=== PATIENT | female | born 1980 | race Caucasian/White ===

== ENCOUNTER 2023-04-17 04:47 | Inpatient (IN) | payer BC, OTHER, SELFPAY ==
[2023-04-17] VITALS (193 sets, daily range): BP systolic 113–180; BP diastolic 61–98; PULSE 73–241; RESP 18; TEMP 36.2–37.3; O2SAT 94–100; BMI 37.2
[2023-04-17 05:57] LABS: Basophils Percent Auto 0.3 % (0.2-1.2); Eosinophils Absolute Auto 0.3 K/mm3 (0-0.3); Eosinophils Percent Auto 2.5 % (0-4.4); Hematocrit 30.1 % (37.0-47.0); Hemoglobin 9.9 g/dL (12.0-15.0); Immature Granulocyte Absolute 0.05 K/mm3 (0.00-0.031); Immature Granulocyte Percent A 0.4 % (0-0.5); Lymphocytes Absolute Auto 2.52 K/mm3 (0.9-3.2); Lymphocytes Percent Auto 20.3 % (18.3-44.2); Mean Corpuscular HGB Conc 32.9 g/dl (32-36); Mean Corpuscular Hemoglobin 27.9 pg (26-34); Mean Corpuscular Volume 84.8 fl (80-100); Mean Platelet Volume 9.8 fl (7.4-10.4); Monocytes Absolute Auto 0.8 K/mm3 (0.1-0.6); Monocytes Percent Auto 6.4 % (2.6-8.5); Neutrophils Absolute Auto 8.7 K/mm3 (1.3-6.7); Neutrophils Percent Auto 70.1 % (45.5-73.1); Platelet Count Result 300 k/mm3 (150-375); Red Blood Count 3.55 M/mm3 (4.2-5.4); Red Cell Distribution Width 15.2 % (11.5-14.5); White Blood Count 12.4 K/mm3 (4.5-10.0)
[2023-04-17] MEDS: LACTATED RINGERS 1,000 ML 125 ML IV CONT ×2 (06:13→19:30)
[2023-04-17] MEDS: OXYTOCIN 30 UNITS/NS 500 ML 30 UNITS/500 ML BAG IV CONT (06:14)
[2023-04-17 09:46] LABS: Rapid Plasma Reagin Non-Reactive (NonReactive)
--- NOTE | 2023-04-17 09:59 | WPDANESEPP ---
Anes - Eval Pre Procedure Procedure: Labor Epidural Date/Time: 04/17/23 09:59 Surgeon: Alex Preop Diagnosis: Labor Pain Pre Op Diagnosis: IOL Patient Data Age: 42 Gender: F Height: 1.73 m Weight: 111 kg Last Vital Signs Temp 36.3 C L 04/17/23 05:30 Pulse 89 04/17/23 09:51 BP 150/72 H 04/17/23 09:51 Pulse Ox 96 04/17/23 09:56 O2 Del Method Room Air 04/17/23 05:41 Allergies Allergy/AdvReac Type Severity Reaction Status Date / Time No Known Drug Allergies Allergy Unknown Verified 04/11/23 15:23 Home Medications Medication Instructions Recorded Confirmed Type aspirin 81 mg tablet,delayed 81 mg PO DAILY 01/18/23 04/17/23 History release omeprazole 20 mg capsule,delayed 20 mg PO DAILY 01/18/23 04/17/23 History release prenat.vits,esvin,ayo-fsfl-ranoo 1 tablet PO DAILY 01/18/23 04/17/23 History Laboratory Tests 04/17/23 05:42 WBC 12.4 H K/mm3 (4.5-10.0) RBC 3.55 L M/mm3 (4.2-5.4) Hgb 9.9 L g/dL (12.0-15.0) Hct 30.1 L % (37.0-47.0) MCV 84.8 fl (80-100) MCH 27.9 pg (26-34) MCHC 32.9 g/dl (32-36) RDW 15.2 H % (11.5-14.5) Plt Count 300 k/mm3 (150-375) MPV 9.8 fl (7.4-10.4) Immature Gran % (Auto) 0.4 % (0-0.5) Neut % (Auto) 70.1 % (45.5-73.1) Lymph % (Auto) 20.3 % (18.3-44.2) [place] % (Auto) 6.4 % (2.6-8.5) Eos % (Auto) 2.5 % (0-4.4) Baso % (Auto) 0.3 % (0.2-1.2) Lymph # (Auto) 2.52 K/mm3 (0.9-3.2) [place] # (Auto) 0.8 H K/mm3 (0.1-0.6) Eos # (Auto) 0.3 K/mm3 (0-0.3) Baso # (Auto) 0.0 K/mm3 (0.0-0.1) Abs Immat Gran (auto) 0.05 H K/mm3 (0.00-0.031) Absolute Neuts (auto) 8.7 H K/mm3 (1.3-6.7) Absolute Nucleated RBC 0.0 K/mm3 (0.0-0.012) Nucleated RBC % 0.0 % (0.0-0.2) RPR Non-reactive (NonReactive) Blood Type A Positive Antibody Screen Negative : gestational age (BOBBY 04/24/23, ) Patient hx anesthesia problems: none Family hx anesthesia problems: none Results Review: All pre-operative results and documents have been reviewed as part of the pre-operative evaluation. 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 Suppression of menstruation Vaginal delivery 08/27/01 Daimyan incubator for respiratory distress 04/27/03 Hannah no complications 01/11/14 Delia hypertension 09/14/17 [place] gestational hypertension, oligohydramnios Vaginal discharge Surgical History Surgical History History of colposcopy with cervical biopsy 06/04/09 benign Family History Family History Grandparent Diabetes mellitus maternal grandmother paternal grandmothr Heart disease maternal grandfather Father Diabetes mellitus Sibling Diabetes mellitus brothers Mother Hypertension Intracranial aneurysm Social History Social History Smoking packs per day: 0.5 Smoking cigarettes per day: 10.0 Smoking status: Current every day smoker Tobacco type: cigarettes Smokeless tobacco user: chewing tobacco Second hand tobacco smoke exposure: No Alcohol intake: never Substance use: former Substance use type: does not use Lack of Transportation: No Lack of Food: Never True Current Housing: I Have Housing Concerned About Future Housing: No Difficulty Paying Gas/Electric Bills: No Difficulty Paying for Meds: No Currently Unemployed: No Education: Trade/Vocational Certificate Difficulty w/ Childcare or Family Care: No Living arrangements: other Additional living arrangements comments: Occupation/Education: unemployed
[2023-04-17] MEDS: SODIUM CHLORIDE 0.9% IV 300 ML 600 ML I-UTERINE (15:58)
[2023-04-17] MEDS: ONDANSETRON INJ 4 MG/2 ML VIAL IV PUSH (17:51)
[2023-04-17] MEDS: OXYTOCIN 30 UNITS/NS 500 ML 30 UNITS/500 ML BAG 999 UNITS IV CONT (21:30)
--- NOTE | 2023-04-17 21:37 | P.PCNOB_ITS ---
OB - Delivery Note Procedure Induction method: Per Pitocin Protocol Delivery augmentation: Rupture of Membranes Delivery monitor: External FHT and Internal Uterine Route of delivery: Episiotomy description: None Laceration Description: None Specimen: No Quantitative Blood Loss (ml): 300 Anesthesia type: Epidural Disposition: Floor Complications: None Narrative: patient was prepped and draped in usual manner for this procedure. Maternal expulsive efforts readily delivered vertex over intact perineum, in the rest of baby followed without difficulty. Cord clamped and cut and placenta delivered spontaneously as well. Cervix vagina vulva were inspected with no lacerations or tears. Uterus well contracted minimal bleeding. At this point the procedure was considered terminated with immediate postoperative condition of mother and baby both excellent. [place] Weeks of gestation at delivery: 39 Infant gender: Female presentation: vertex position: Left Occiput Anterior Placenta delivery description: Spontaneous Cord Vessel Description: 3 Vessels score one minute: 8 score five minutes: 9 [facility] Delivery Billing Delivery Delivery: Delivery Charge
--- NOTE | 2023-04-17 21:37 | WPDHPUPDATE1 ---
History and Physical Update Update Date/Time: 04/17/23 21:37 History and Physical has been reviewed, including an updated exam of the patient. There are NO changes in the patient's condition. Risks, benefits, and alternatives have been discussed and questions answered. Patient agrees to proceed with procedure.
--- NOTE | 2023-04-17 21:37 | WPDOBADMIT ---
Obstetrics - Admit Note Admission Note: record reviewed. No pertinent additions to the history and/or any subsequent changes in the physical findings that are not consistent with the expected course of the were found. Additions to the history and/or subsequent changes in the physical findings follow. None.
[2023-04-17] MEDS: OXYTOCIN 30 UNITS/NS 500 ML 30 UNITS/500 ML BAG 125 UNITS IV CONT (22:20)
--- NOTE | 2023-04-17 23:50 | OBPPTRN ---
Patient transferred to post room #279 via wheelchair. Support person present. Oriented to unit, room, information board, rooming in, admission packet and security measures. Patient verbalizes understanding. with patient.
[2023-04-18 03:20] VITALS: BP 113/64; PULSE 91; RESP 16; TEMP 36; O2SAT 98
[2023-04-18] MEDS: IBUPROFEN 600 MG TABLET PO ×3 (03:21→16:31)
[2023-04-18 05:04] LABS: Hemoglobin 9.5 g/dL (12.0-15.0)
--- NOTE | 2023-04-18 07:27 | PM.OBDSVD ---
DS: Admitting Diagnosis Discharge Date 04/19/2023 Admitting Diagnosis DS: Discharge Diagnosis Discharge Diagnosis (1) , delivered: Code(s): O80 - Encounter for full-term uncomplicated delivery Status: Acute OB - DS: Summary OB Procedures : None OB Procedures Intrapartum: Spontaneous Vag Delivery OB Procedures: : None Time Spent with Patient Time attestation: Total time spent providing and/or coordinating discharge services: DS: Data Data Completed and Pending Labs on day of discharge: Labs from last 24 hours 04/18/23 04/17/23 03:26 05:42 Hgb 9.5 L Hct 29.0 L RPR Non-reactive Discharge Plan Discharge Discharging Clinician: Reji Johnson Patient Disposition: Home, Self-Care Activity: as tolerated Diet: as tolerated Patient Instructions: Antibiotic Form Stand Alone Forms: General Discharge Information Follow-up/Referrals: Reji Johnson MD [Physician] - 3 Weeks Discharge Medications: New ibuprofen 600 mg Tablet 600 mg PO Q6H PRN (Reason: Cramping) Qty: 30 0RF Continued omeprazole 20 mg capsule,delayed release(DR/EC) 20 mg PO DAILY prenat.vits,esvin,mgf-zygw-qiiuz Tablet 1 tablet PO DAILY aspirin 81 mg tablet,delayed release (DR/EC) 81 mg PO DAILY Date of admission: 04/17/23 04:47 Primary Care Provider: UNKNOWN,DOCTOR Admitting Provider: Reji Johnson Attending physician on admission: Reji Johnson Condition: Stable
[2023-04-18 07:50] VITALS: BP 126/83; PULSE 87; RESP 16; TEMP 36.7; O2SAT 100
[2023-04-18] MEDS: MULTIVIT/MIN/PREN/FOL AC/IRON TABLET 1 TAB PO (09:29)
[2023-04-18] MEDS: DOCUSATE SODIUM 100 MG CAPSULE PO ×2 (09:29→16:31)
[2023-04-18] MEDS: POLYSACCHARIDE IRON COMPLEX 150 MG CAPSULE PO ×2 (09:29→16:31)
[2023-04-18] MEDS: PANTOPRAZOLE 40 MG TABLET PO (09:30)
--- NOTE | 2023-04-18 10:07 | WPDANLDPN2 ---
Anes-Prog Note L&D Date/Time: 04/18/23 10:07 Comfortable throughout: labor and delivery Neuraxial method: epidural Epidural/Spinal procedure site: clean & non-tender Neuro status: Neuro function grossly intact. Cardiovascular status: normal Respiratory status: normal Airway patency: baseline Mental status: baseline Post-Op hydration status: normal Vital Signs: Last Vital Signs Temp 36.7 C 04/18/23 07:50 Pulse 87 04/18/23 07:50 Resp 16 04/18/23 07:50 BP 126/83 04/18/23 07:50 Pulse Ox 100 04/18/23 07:50 O2 Del Method Room Air 04/18/23 03:20 Pain score (VAS): 10 I/O: Intake & Output 04/17/23 04/18/23 04/18/23 23:59 07:59 15:59 Intake Total 1000 Balance 1000 Post-procedural complaints: none Patient feedback: Patient satisfied with anesthetic care.
[2023-04-18 11:59] VITALS: BP 135/72; PULSE 79; RESP 16; TEMP 36.2; O2SAT 99
[2023-04-18] MEDS: ACETAMINOPHEN 325 MG TABLET 650 MG PO ×2 (13:23→20:43)
[2023-04-18 20:30] VITALS: BP 156/77; PULSE 80; RESP 16; TEMP 36.5; O2SAT 97
[2023-04-19] MEDS: IBUPROFEN 600 MG TABLET PO (04:12)
[2023-04-19] MEDS: TETANUS,DIPHTHERIA,AC PERTUSSIS ADULT (0.5 ML) BOOSTRIX IM (04:13)
[2023-04-19 07:55] VITALS: BP 138/80; PULSE 78; RESP 18; TEMP 36.3; O2SAT 98
[2023-04-19] MEDS: LANOLIN (LANSINOH) 7.5 GM CREAM 1 APPLIC TOPICAL (09:11)
[2023-04-19] MEDS: WITCH HAZEL 40 PADS 1 PAD TOPICAL (09:11)
[2023-04-19] MEDS: BENZOCAINE 20% AER SPR (*SP) 56 GM CAN 1 SPRAY TOPICAL (09:11)
[2023-04-19] MEDS: ACETAMINOPHEN 325 MG TABLET 650 MG PO (09:12)
[2023-04-19] MEDS: DOCUSATE SODIUM 100 MG CAPSULE PO (09:12)
[2023-04-19] MEDS: PANTOPRAZOLE 40 MG TABLET PO (09:12)
[2023-04-19] MEDS: MULTIVIT/MIN/PREN/FOL AC/IRON TABLET 1 TAB PO (09:12)
[2023-04-19] MEDS: POLYSACCHARIDE IRON COMPLEX 150 MG CAPSULE PO (09:12)
[2023-04-21 09:01] VITALS: BP 150/87; PULSE 74; RESP 20; TEMP 36.9; O2SAT 100
== END 2023-04-19 12:15 | disposition home or self-care (01) | DRG 807 ==
LOC: ANHLDR 04:56 → ANHOB2 04-18 00:05
PROVIDERS: Admitting Provider Obstetrics & Gynecology; Visit Provider Obstetrics & Gynecology
DX: O80 Encounter for full-term uncomplicated delivery (principal); Z37.0 Single live birth; Z3A.39 39 weeks gestation of pregnancy
CPT/HCPCS: 36415; 85014; 85018; 85025; 86592; 86850; 86900; 86901; 90715; A9270; J2405; J2590; J2795; J7030; J7120

== ENCOUNTER 2023-07-10 12:06 | Outpatient (CLI) | payer OTHER, SELFPAY ==
[2023-07-10 13:04] LABS: Hematocrit 38.3 % (37.0-47.0); Hemoglobin 12.1 g/dL (12.0-15.0); Mean Corpuscular HGB Conc 31.6 g/dl (32-36); Mean Corpuscular Hemoglobin 26.9 pg (26-34); Mean Corpuscular Volume 85.3 fl (80-100); Mean Platelet Volume 9.7 fl (7.4-10.4); Platelet Count Result 457 k/mm3 (150-375); Red Blood Count 4.49 M/mm3 (4.2-5.4); Red Cell Distribution Width 14.6 % (11.5-14.5); White Blood Count 7.8 K/mm3 (4.5-10.0)
== END 2023-07-10 12:07 | disposition home or self-care (01) ==
LOC: ANHSURGERY 12:11
PROVIDERS: Visit Provider Obstetrics & Gynecology
DX: Z01.818 Encounter for other preprocedural examination (principal)
CPT/HCPCS: 36415; 85027

== ENCOUNTER 2023-07-13 01:19 | Day surgery (SDC) | payer OTHER, SELFPAY ==
[2023-06-07 09:56] VITALS: BMI 33.4
--- NOTE | 2023-06-07 10:00 | PC.NURSE ---
Addendum entered by Alize Erwin RN 07/03/23 15:02: Updated date/time and arrival time for surgery given to patient. Patient to arrive on 07/13/23 at 0600 for a surgery time of 0730. All other medical history, home medications, allergies, and pharmacy unchanged from original pre-op interview. Original Note: Report to the Outpatient Waiting Room, entrance under the green pavilion located off [facility], at time 0815 on date 06/15/23. Planned Procedure Time: 1015. Time changes happen often and if your time is changed the preop area will call you the afternoon before. - You and your visitor will be asked to self-screen and do not enter if you have any COVID symptoms. - A mask is optional within the hospital at this time. Patients may have clear liquids (water, carbonated beverages, clear teas, apple juice) until 3 hours prior to surgery with a maximum of 20 ounces. - No food from midnight until time of surgery Take the following medications with a SIP of water the morning of surgery: NIFEDIPINE DO NOT STOP ANY OF YOUR OTHER PRESCRIPTION MEDICATIONS PRIOR TO SURGERY ?EXCEPT THE FOLLOWING Medications to discontinue per physician: N/A Date to take last dose: N/A Please no make-up, nail mohawk, hairspray, perfume, deodorant, or body powder the day of surgery. No jewelry (including any body piercings) or valuables the day of surgery, leave them at home. Please take a shower or bath the night before, or the morning of, surgery with an antibacterial soap. Wear comfortable, loose fitting clothing. - Jewelry must be removed prior to entering the operating room. Rings and piercings that are not removed may be cut off. - The hospital will not accept responsibility for valuables. - Please leave all valuables, including medications, at home the day of surgery. If you are going home after surgery, a licensed medical van driver must drive you home. - NO public transportation without another adult if you receive anesthesia. - We recommend that an adult stay with you for 24 hours following discharge. - We also recommend that you do not drive, make important decision, drink alcoholic beverages, or take any drugs that were not prescribed by your health care provider for at least 24 hours after your discharge time. Follow any additional instructions given to you from your surgeon. If you or anyone in your household have experienced Covid symptoms in the past week, please notify your surgeon or the nurse liaison at the phone number below for possible testing. Telephone instructions given to FREDDY LYN and asked if any additional questions and then verbalized understanding. Patient advised to call surgeon office or pre surgery nurse liaison [phone] if any additional questions.
--- NOTE | 2023-06-13 14:41 | PM.IMHP ---
H&P: HPI History of Present Illness Date/Time: 06/13/23 14:41 42-year-old female presents for elective sterilization. We have discussed the permanence failure rate increased risk of ectopic and regret and patient strongly desires to proceed. 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 Suppression of menstruation Vaginal delivery 08/27/01 Daimyan incubator for respiratory distress 04/27/03 Hannah no complications 01/11/14 Delia hypertension 09/14/17 [place] gestational hypertension, oligohydramnios Vaginal discharge Surgical History Surgical History History of colposcopy with cervical biopsy 06/04/09 benign Family History Family History Grandparent Diabetes mellitus maternal grandmother paternal grandmothr Heart disease maternal grandfather Father Diabetes mellitus Sibling Diabetes mellitus brothers Mother Hypertension Intracranial aneurysm Social History Social History Smoking packs per day: 0.5 Smoking cigarettes per day: 10.0 Years smoked: 25 Smoking pack-years: 12.50 Smoking status: Current every day smoker Tobacco type: cigarettes Smokeless tobacco user: chewing tobacco Second hand tobacco smoke exposure: No Alcohol intake: current Alcohol use details: RARE Substance use: current Substance use type: marijuana Lack of Transportation: No Lack of Food: Often True Current Housing: I Have Housing Concerned About Future Housing: No Difficulty Paying Gas/Electric Bills: YES Difficulty Paying for Meds: YES Currently Unemployed: No Education: Trade/Vocational Certificate Difficulty w/ Childcare or Family Care: YES Living arrangements: with family Additional living arrangements comments: Occupation/Education: unemployed Gender identity (if verbalized by the patient): Female Sexual Orientation (if Verbalized by the Patient): Straight or Heterosexual Spiritual care concerns: No Meds Home Medications and Allergies Home Medications Medication Instructions Recorded Confirmed Type omeprazole 20 mg capsule,delayed 20 mg PO DAILY 01/18/23 06/07/23 History release nifedipine 30 mg tablet,extended 30 mg PO DAILY 06/05/23 06/07/23 History release aspirin 81 mg chewable tablet 81 mg PO DAILY 06/07/23 06/07/23 History Allergies Allergy/AdvReac Type Severity Reaction Status Date / Time No Known Drug Allergies Allergy Unknown Verified 06/07/23 09:55 Exam Const: General: cooperative, healthy appearing and comfortable Resp: Effort & Inspection: normal respiratory effort Auscultation: clear to auscultation bilaterally Cardio: Rate: regular rate Rhythm: regular rhythm GI: Inspection: normal to inspection Auscultation: normal bowel sounds : External Female Exam: normal external appearance Speculum Exam - Vagina: normal appearance of the vagina Speculum Exam - Cervix: normal appearance of the cervix Bimanual exam- vagina & uterus: normal bimanual exam Bimanual Exam- Adnexa, other: normal adnexae Assessment and Plan Assessment and plan (1) Encounter for female sterilization procedure: Code(s): Z30.2 - Encounter for sterilization Status: Acute Plan 1. Laparoscopic bilateral salpingectomy
[2023-07-13] VITALS (9 sets, daily range): BP systolic 124–165; BP diastolic 76–93; PULSE 68–90; RESP 12–18; TEMP 36.7; O2SAT 95–100
[2023-07-13] MEDS: ACETAMINOPHEN 500 MG TABLET 1000 MG PO (06:56)
[2023-07-13] MEDS: KETOROLAC 15 MG/ML VIAL (*BKC) IV PUSH (06:57)
--- NOTE | 2023-07-13 07:07 | WPDANESEPPF ---
Anes - Initial Pre Proc Eval Procedure: Operation Date: 07/13/23 07:30 Proposed Procedures p Bilateral Laparoscopic Salpingectomy - Reji Johnson MD Date/Time: 07/13/23 07:07 Surgeon: Reji Johnson MD Pre Op Diagnosis: Desires Sterilization Patient Data Age: 42 Gender: F Height: 1.73 m Weight: 101 kg Last Vital Signs Pulse 90 07/13/23 06:24 Resp 18 07/13/23 06:24 BP 165/93 H 07/13/23 06:24 Pulse Ox 99 07/13/23 06:24 O2 Del Method Room Air 07/13/23 06:24 Allergies Allergy/AdvReac Type Severity Reaction Status Date / Time No Known Drug Allergies Allergy Unknown Verified 07/13/23 06:22 Home Medications Medication Instructions Recorded Confirmed Type omeprazole 20 mg capsule,delayed 20 mg PO DAILY 01/18/23 06/07/23 History release aspirin 81 mg chewable tablet 81 mg PO DAILY 06/07/23 07/13/23 History nifedipine 30 mg tablet,extended 30 mg PO DAILY #30 tabs 06/27/23 07/13/23 Rx release Patient hx anesthesia problems: none Family hx anesthesia problems: none Results Review: All pre-operative results and documents have been reviewed as part of the pre-operative evaluation. 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 Suppression of menstruation Vaginal delivery 08/27/01 Daimyan incubator for respiratory distress 04/27/03 Hannah no complications 01/11/14 Delia hypertension 09/14/17 [place] gestational hypertension, oligohydramnios Vaginal discharge Surgical History Surgical History History of colposcopy with cervical biopsy 06/04/09 benign Family History Family History Grandparent Diabetes mellitus maternal grandmother paternal grandmothr Heart disease maternal grandfather Father Diabetes mellitus Sibling Diabetes mellitus brothers Mother Hypertension Intracranial aneurysm Social History Social History Smoking packs per day: 0.5 Smoking cigarettes per day: 10.0 Years smoked: 25 Smoking pack-years: 12.50 Smoking status: Current every day smoker Tobacco type: cigarettes Smokeless tobacco user: chewing tobacco Second hand tobacco smoke exposure: No Alcohol intake: current Alcohol use details: RARE Substance use: current Substance use type: marijuana Lack of Transportation: No Lack of Food: Often True Current Housing: I Have Housing Concerned About Future Housing: No Difficulty Paying Gas/Electric Bills: YES Difficulty Paying for Meds: YES Currently Unemployed: No Education: Trade/Vocational Certificate Difficulty w/ Childcare or Family Care: YES Living arrangements: with family Additional living arrangements comments: Occupation/Education: unemployed Gender identity (if verbalized by the patient): Female Sexual Orientation (if Verbalized by the Patient): Straight or Heterosexual Spiritual care concerns: No Anes - Eval Final PreProcedure Day of Procedure 07/13/23 07:07 Patient weight: obese Heart: regular rate and rhythm Lungs: decreased breath sounds Airway: Mallampati scale class II Neurological: alert and oriented Last oral intake: >/= 8 hours ASA classification: III Emergent: no Anesthetic plan: proceed Anesthesia type and monitoring: general ETT and standard monitoring Results Review: All pre-operative results and documents have been reviewed as part of the pre-operative evaluation. Informed Consent: The patient's anesthetic plan and its attendant risks and benefits were discussed with the patient/family/POA. Questions were solicited and answers provided to the satisfaction of the patien
--- NOTE | 2023-07-13 07:09 | WPDHPUPDATE1 ---
History and Physical Update Update Date/Time: 07/13/23 07:09 History and Physical has been reviewed, including an updated exam of the patient. There are NO changes in the patient's condition. Risks, benefits, and alternatives have been discussed and questions answered. Patient agrees to proceed with procedure.
[2023-07-13] MEDS: LACTATED RINGERS 1,000 ML 30 ML IV CONT ×2 (07:16→08:07)
--- NOTE | 2023-07-13 07:53 | W.PM.PROC2 ---
Procedure Note - Detailed Date of Procedure 07/13/23 Pre-op Diagnosis Desires Sterilization Post-op Diagnosis Same Procedure Performed Laparoscopic bilateral salpingectomy Surgeon Reji Johnson MD Anesthesia General Findings Uterus tubes ovaries without abnormality Description of Procedure Patient prepped and draped in usual manner this procedure. Cervical instruments were placed for uterine mobility throughout the case. Abdominal trocar sites were made under direct visualizations and trocars were placed. Bilaterally the tubes were grasped with clamps and mesial salpinx was cauterized and cut with Harmonic scalpel. Tubes removed without difficulty. Gas was allowed to escape, there was no bleeding, and the incisions were approximated using 4-0 Monocryl. Patient was then sent to recovery room in stable condition. Estimated Blood Loss 10 Drains No Packing No Pathology Yes Complications No immediate complications Condition Stable Disposition PACU [facility] Billing Surgery - Charge Forward: Surgery Billing
[2023-07-13] MEDS: fentaNYL CITRATE INJ (*CRX) 100 MCG/2 ML VIAL 25 MCG IV PUSH ×2 (08:25→08:28)
[2023-07-13] MEDS: oxyCODONE HCL (*CRX) 5 MG TAB IR PO (09:27)
--- NOTE | 2023-07-13 10:25 | SUR.PHASEII ---
Patient dressed, IV removed, Vital signs stable. Patient awaiting ride.
== END 2023-07-13 10:52 | disposition home or self-care (01) ==
PROVIDERS: Visit Provider Obstetrics & Gynecology
PROC: (CPT 49320; principal; 2023-07-13 07:30)
DX: Z30.2 Encounter for sterilization (principal); F17.210 Nicotine dependence, cigarettes, uncomplicated; F12.90 Cannabis use, unspecified, uncomplicated; E66.9 Obesity, unspecified; Z68.33 Body mass index [BMI] 33.0-33.9, adult
CPT/HCPCS: 58661; 88302; A9270; J0330; J1100; J1885; J2250; J2405; J2704; J3010; J7030; J7120